=== PATIENT | male | born 1995 | race Hispanic/Latino ===

== ENCOUNTER 2019-05-04 17:13 | Emergency (ER) | payer OTHER ==
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
[2019-05-04 17:23] VITALS: BP 130/85
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
[2019-05-04] MEDS ORDERED: HYDROcodone/ACETAMINOPHEN 5-325 MG TAB ONE (21:52)
[2019-05-04] MEDS ORDERED: IBUPROFEN 800 MG TAB ONE (21:52)
[2019-05-04] MEDS ORDERED: IBUPROFEN 800 MG TAB PO ONE (21:53)
[2019-05-04] MEDS ORDERED: HYDROcodone/ACETAMINOPHEN 5-325 MG TAB PO ONE (21:53)
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
== END 2019-05-04 22:30 | disposition home or self-care (01) ==
LOC: ED 17:13
DX: S39.012A Strain of muscle, fascia and tendon of lower back, initial encounter (principal); S16.1XXA Strain of muscle, fascia and tendon at neck level, initial encounter; I10 Essential (primary) hypertension; F17.200 Nicotine dependence, unspecified, uncomplicated; Z90.89 Acquired absence of other organs; Z79.899 Other long term (current) drug therapy; V49.49XA Driver injured in collision with other motor vehicles in traffic accident, initial encounter; Y93.89 Activity, other specified; Y92.410 Unspecified street and highway as the place of occurrence of the external cause; Y99.8 Other external cause status
CPT/HCPCS: 72040; 72100